=== PATIENT | female | born 1955 | race Caucasian/White ===

== ENCOUNTER 2019-02-15 17:46 | Emergency (ER) | payer OTHER, SELFPAY ==
[2019-02-15] VITALS (10 sets, daily range): BP systolic 116–163; BP diastolic 56–76; PULSE 61–77; RESP 15–21; TEMP 36.6–36.7; O2SAT 91–100; BMI 27.8
[2019-02-15] MEDS: ONDANSETRON 4 MG/2 ML INJ IV ×2 (18:08→19:54)
[2019-02-15] MEDS: SODIUM CHLORIDE 0.9% 1,000 ML 1000 ML IV ×2 (18:08→19:53)
[2019-02-15 18:12] LABS: Add Manual Diff / Slide Review NO; Basophils Absolute Auto 0 /uL (0-100); Basophils Percent Auto 0.1 % (0-2); Eosinophils Absolute Auto 0 /uL (0-450); Eosinophils Percent Auto 0.1 % (2-4); Hematocrit 41.2 % (36-46); Hemoglobin 14.5 g/dL (12.0-16.0); Lymphocytes Absolute Auto 800 /uL (1100-4500); Lymphocytes Percent Auto 5.6 % (25-40); Mean Corpuscular HGB Conc 35.1 % (30-36); Mean Corpuscular Hemoglobin 31.2 PG (26-34); Mean Corpuscular Volume 88.8 fL (80-100); Monocytes Absolute Auto 500 /uL (0-900); Monocytes Percent Auto 3.5 % (3-14); Neutrophils Absolute Auto 13100 /uL (1500-7000); Neutrophils Percent Auto 90.7 % (50-75); Platelet Count 310 X10^3/uL (150-400); Red Blood Cell Count 4.64 X10^6/uL (4.0-5.2); Red Cell Distribution Width 12.4 % (11.6-14.8); White Blood Cell Count 14.5 X10^3/uL (4.5-11.0)
[2019-02-15 18:17] LABS: Prothrombin Time 11.9 SECONDS (10.1-12.7)
[2019-02-15 18:19] LABS: PTT Partial Thromboplastin Tim 30 SECONDS (26.4-36.2)
[2019-02-15 18:21] LABS: Alanine Aminotransferase 46 IU/L (<35); Albumin 4.8 g/dL (3.5-5.0); Albumin Globulin Ratio 1.5 (1.0-2.8); Alkaline Phosphatase 103 U/L (38-126); Aspartate Aminotransferase 35 IU/L (14-36); Bilirubin Total 0.6 mg/dL (0.2-1.3); Blood Urea Nitrogen 18 mg/dL (7-17); Calcium 9.6 mg/dL (8.4-10.2); Carbon Dioxide 28 mmol/L (22-32); Chloride 99 mmol/L (98-107); Estimated Glomerular Filt Rate > 60.0 mL/min (>60); Globulin 3.2 g/dL (1.7-4.1); Glucose 142 mg/dL (80-110); HEMOLYSIS < 15 (0-50); Lipase 68 U/L (23-300); Potassium 3.7 mmol/L (3.4-5.1); Sodium 138 mmol/L (137-145)
--- NOTE | 2019-02-15 18:23 | ED.NAVMDI ---
HPI - Nausea/Vomiting/Diarrhea General Chief complaint: Nausea/Vomiting/Diarrhea Stated complaint: Food poisoning Time Seen by Provider: 02/15/19 18:09 Mode of arrival: Ambulatory History of Present Illness HPI Narrative: 63-year-old woman with history of mild thyroid dysfunction, depression and third-degree heart block status post pacemaker presents with almost 24 hours of nausea vomiting and diarrhea. At about 7:00 a.m. last night she ate a small individual pizza from [employer] and it within 4 hours of that began vomiting. Follow shortly thereafter with diarrhea. There has been no blood in either emesis or stool. The nausea has persisted and she has continued to the point where she simply having dry heaves. The diarrhea has stopped as there is nothing left to come out at this point. She complains of some mild abdominal pain from all of the vomiting and diarrhea but no other significant pain. She states that she is not dizzy when she stands up (she is in a paced rhythm in the 60s) she notes that she will get some chills just prior to vomiting however hasn't reported any fevers. No headache, chest pain, dyspnea, rashes. Related Data Allergies Allergy/AdvReac Type Severity Reaction Status Date / Time No Known Drug Allergies Allergy Verified 02/15/19 17:53 Review of Systems Review of Systems ROS Unobtainable: All systems reviewed & are unremarkable except as noted in HPI and below Patient History Social History (Updated 02/15/19 @ 18:28 by Kenya Skaggs MD) marital status: household members: spouse Smoking Status: Never smoker Smoking Status: Never smoker alcohol intake frequency: 0-2 drinks per day Substance Use Type: does not use Exam Narrative Exam Narrative: General: Healthy appearing, in no acute distress. Able to give a complete and coherent history. Well-nourished well-developed HEENT: Dry mucous membranes, normal sclera with reactive pupils, Neck: No JVD, supple Respiratory: Lungs are clear to auscultation, no wheezing no rales no rhonchi. Full and symmetrical air movement Cardiac: Regular rate and rhythm no murmurs no bruits Abdomen: Soft, abdominal wall muscular tenderness, hyperactive bowel tones, no flank pain Skin: Warm and dry, no rashes Neurologic: Grossly neurologically intact with no obvious asymmetries or abnormalities Extremities: No trauma, Psych: Cooperative, appropriate insight and affect Initial Vital Signs Initial Vital Signs: Vital Signs Temperature 98 F 02/15/19 17:53 Pulse Rate 68 02/15/19 17:53 Respiratory Rate 21 02/15/19 17:53 Blood Pressure 145/75 H 02/15/19 17:53 Pulse Oximetry 99 02/15/19 17:53 Course Course Course Narrative: Exam is most consistent with food poisoning as she suspects. Labs are pending. Suspect that she will need 2 L of fluid. Zofran has been administered. If this is ineffective will also add Phenergan. When she is able to void spontaneously and keep some liquids down suspect she will be safe for home discharge Patient is feeling better. I did review her elevated white blood cell count with her. Recommended that she return with increasing pain or recurrence vomiting or diarrhea. She is able to keep liquids down at this point. No evidence of an acute abdomen with clear improvement over the course of her ER stay. She is safe for home discharge Orders Ordered: ED Orders 02/15/19 18:00 Complete Blood Count AUTO DIFF Stat Comprehensive Metabolic Panel Stat Lipase Stat Partial Thromboplastin Time Stat Prothrombin Time INR Stat 02/15/19 19:49 Urine Culture Stat Urine Microscopic Stat Discontinued Medications Hydromorphone HCl (Dilaudid) 0.5 mg IV NOW ONE Stop: 02/15/19 20:49 Last Admin: 02/15/19 20:55 Dose: 0.5 mg Documented by: MEISENB Sodium Chloride (Normal Saline 0.9%) 1,000 mls @ 1,000 mls/hr IV BOLUS ONE Stop: 02/15/19 19:03 Last Infusion: 02/15/19 19:20 Dose: 0 mls/hr Documented by: Admin: 02/15/19 18:08 Dose: 1,000 mls/hr Documented by: MEISENB Sodium Chloride (Normal Saline 0.9%) 1,000 mls @ 1,000 mls/hr IV BOLUS ONE Stop: 02/15/19 20:47 Last Infusion: 02/15/19 21:01 Dose: 0 mls/hr Documented by: Admin: 02/15/19 19:53 Dose: 1,000 mls/hr Documented by: MEISENB Sodium Chloride (Normal Saline 0.9%) 1,000 mls @ 1,000 mls/hr IV BOLUS ONE Stop: 02/15/19 20:57 Metoclopramide HCl (Reglan) 10 mg IV NOW ONE Stop: 02/15/19 20:05 Last Admin: 02/15/19 20:08 Dose: 10 mg Documented by: EDWIN Ondansetron HCl (Zofran) 4 mg IV NOW ONE Stop: 02/15/19 18:05 Last Admin: 02/15/19 18:08 Dose: 4 mg Documented by: EDWIN Ondansetron HCl (Zofran) 4 mg IV NOW ONE Stop: 02/15/19 19:49 Last Admin: 02/15/19 19:54 Dose: 4 mg Documented by: EDWIN Pantoprazole Sodium (Protonix) 40 mg IV NOW ONE Stop: 02/15/19 20:02 Last Admin: 02/15/19 20:08 Dose: 40 mg Documented by: DEWIN Vital Signs Vital signs: Vital Signs - 8 hr 02/15/19 17:53 02/15/19 18:30 02/15/19 18:58 Temperature 98 F Pulse Rate 68 62 65 Respiratory Rate 21 20 20 Blood Pressure 145/75 H Blood Pressure [Left Arm] 163/70 H 155/64 H Pulse Oximetry 99 96 02/15/19 19:08 02/15/19 19:30 02/15/19 20:00 Temperature Pulse Rate 65 71 61 Respiratory Rate 21 21 21 Blood Pressure Blood Pressure [Left Arm] 162/67 H 156/76 H 146/65 H Pulse Oximetry 96 97 97 02/15/19 20:16 02/15/19 21:16 02/15/19 22:00 Temperature Pulse Rate 61 77 67 Respiratory Rate 20 16 15 Blood Pressure Blood Pressure [Left Arm] 163/65 H 126/57 L 116/56 L Pulse Oximetry 96 91 100 MDM - Nausea/Vomiting/Diarrhea Lab Data Result diagrams: 02/15/19 18:00 02/15/19 18:00 Labs: Lab Results 02/15/19 02/15/19 02/15/19 Range/Units 18:00 18:00 18:00 WBC 14.5 H (4.5-11.0) X10^3/uL RBC 4.64 (4.0-5.2) X10^6/uL Hgb 14.5 (12.0-16.0) g/dL Hct 41.2 (36-46) % MCV 88.8 (80-100) fL MCH 31.2 (26-34) PG MCHC 35.1 (30-36) % RDW 12.4 (11.6-14.8) % Plt Count 310 (150-400) X10^3/uL Neut % (Auto) 90.7 H (50-75) % Lymph % (Auto) 5.6 L (25-40) % [place] % (Auto) 3.5 (3-14) % Eos % (Auto) 0.1 L (2-4) % Baso % (Auto) 0.1 (0-2) % Neut # (Auto) 56544 H (7807-1061) /uL Lymph # (Auto) 800 L (4880-5599) /uL [place] # (Auto) 500 (0-900) /uL Eos # (Auto) 0 (0-450) /uL Baso # (Auto) 0 (0-100) /uL PT 11.9 (10.1-12.7) SECONDS INR 1.0 (0.9-1.3) APTT 30 (26.4-36.2) SECONDS Sodium 138 (137-145) mmol/L Potassium 3.7 (3.4-5.1) mmol/L Chloride 99 (98-107) mmol/L Carbon Dioxide 28 (22-32) mmol/L BUN 18 H (7-17) mg/dL Creatinine 0.60 (0.52-1.04) mg/dL Estimated GFR > 60.0 (>60) mL/min BUN/Creatinine Ratio 30.0 H (6-22) Glucose 142 H (80-110) mg/dL Calcium 9.6 (8.4-10.2) mg/dL Total Bilirubin 0.6 (0.2-1.3) mg/dL AST 35 (14-36) IU/L ALT 46 H (<35) IU/L Alkaline Phosphatase 103 (38-126) U/L Total Protein 8.0 (6.3-8.2) g/dL Albumin 4.8 (3.5-5.0) g/dL Globulin 3.2 (1.7-4.1) g/dL Albumin/Globulin Ratio 1.5 (1.0-2.8) Lipase 68 (23-300) U/L Urine RBC (0-5/HPF) Urine WBC (0-5/HPF) Amorphous Sediment Urine Bacteria (None) Urine Mucus (Negative) Ur Culture Indicated? 02/15/19 Range/Units 19:49 WBC (4.5-11.0) X10^3/uL RBC (4.0-5.2) X10^6/uL Hgb (12.0-16.0) g/dL Hct (36-46) % MCV (80-100) fL MCH (26-34) PG MCHC (30-36) % RDW (11.6-14.8) % Plt Count (150-400) X10^3/uL Neut % (Auto) (50-75) % Lymph % (Auto) (25-40) % [place] % (Auto) (3-14) % Eos % (Auto) (2-4) % Baso % (Auto) (0-2) % Neut # (Auto) (7107-7558) /uL Lymph # (Auto) (4934-8392) /uL [place] # (Auto) (0-900) /uL Eos # (Auto) (0-450) /uL Baso # (Auto) (0-100) /uL PT (10.1-12.7) SECONDS INR (0.9-1.3) APTT (26.4-36.2) SECONDS Sodium (137-145) mmol/L Potassium (3.4-5.1) mmol/L Chloride (98-107) mmol/L Carbon Dioxide (22-32) mmol/L BUN (7-17) mg/dL Creatinine (0.52-1.04) mg/dL Estimated GFR (>60) mL/min BUN/Creatinine Ratio (6-22) Glucose (80-110) mg/dL Calcium (8.4-10.2) mg/dL Total Bilirubin (0.2-1.3) mg/dL AST (14-36) IU/L ALT (<35) IU/L Alkaline Phosphatase (38-126) U/L Total Protein (6.3-8.2) g/dL Albumin (3.5-5.0) g/dL Globulin (1.7-4.1) g/dL Albumin/Globulin Ratio (1.0-2.8) Lipase (23-300) U/L Urine RBC 1-5/hpf (0-5/HPF) Urine WBC 10-30/hpf H (0-5/HPF) Amorphous Sediment 1+ Urine Bacteria Moderate (10-30) H (None) Urine Mucus 2+ H (Negative) Ur Culture Indicated? Specimen cultured Urine Dip Bedside Urine Glucose Negative Bedside Urine Bilirubin - Negative Bedside Urine Ketone +++ 80 Urine Specific [place] 1.015 Bedside Urine Occult Blood +/- Bedside Urine pH 6.5 Bedside Urine Protein + 30 Bedside Urine Urobilinogen +/- 1mg Bedside Urine Nitrite - Negative Bedside Urine Leukocytes +/- 15 Esterase MDM Narrative Medical decision making narrative: Still nauseated after initial Phenergan in L of fluid. White blood cell count is slightly elevated with a slight left shift. Her abdomen is reexamined slightly diffusely tender but no rebound or guarding. Will try Phenergan and a 2nd L of fluid and re-evaluate Discharge Plan Departure Patient Disposition: Home Clinical Impression: Food poisoning, Gastroenteritis Instructions: DI for Viral Gastroenteritis -- Adult Activity Restrictions/Additional Instructions: Thank you for coming in today. I'm glad we were able to get you rehydrated and feeling a bit better. With your elevated white blood cell count it may be that this is a viral gastroenteritis rather than food poisoning. Both should heal nicely and you for should feel better tomorrow. If you're having fevers, recurrence vomiting or diarrhea or increasing abdominal pain he deemed to return to the emergency department for additional evaluation. I do hope that you feel better
[2019-02-15] MEDS: METOCLOPRAMIDE 10 MG/2 ML INJ IV (20:08)
[2019-02-15] MEDS: PANTOPRAZOLE 40 MG VIAL IV (20:08)
[2019-02-15 20:13] LABS: Amorphous Sediment Urine 1+; Bacteria Urine Moderate (10-30); Culture Indicated Urine Specimen Cultured; Mucus Urine 2+ (Negative); RBC Urine 1-5/HPF (0-5/HPF); WBC Urine 10-30/HPF (0-5/HPF)
[2019-02-15] MEDS: HYDROMORPHONE 0.5 MG INJ IV (20:55)
== END 2019-02-15 22:26 | disposition home or self-care (01) ==
PROVIDERS: Emergency Provider Emergency Medicine
DX: A08.4 Viral intestinal infection, unspecified (principal); A05.9 Bacterial foodborne intoxication, unspecified
CPT/HCPCS: 36415; 80053; 81003; 81015; 83690; 85025; 85610; 85730; 87086; 96361; 96374; 96375; 96376; 99284; C9113; J1170; J2405; J2765

== ENCOUNTER 2019-04-07 20:23 | Emergency (ER) | payer OTHER, SELFPAY ==
[2019-04-07 20:30] VITALS: BP 130/58; PULSE 65; RESP 14; TEMP 37; O2SAT 98
--- NOTE | 2019-04-07 22:18 | ED_ITS ---
HPI - Extremity Injury (Lower) General Chief Complaint: Extremity Injury, Lower Stated Complaint: back or right leg pain Time Seen by Provider: 04/07/19 21:41 Source: patient Mode of arrival: Wheelchair Limitations: no limitations History of Present Illness HPI Narrative: This is a 64-year-old female comes emergency department with right lower extremity pain. Patient states symptoms started after she had gone up a ladder into her attic. She does remember tweaking it but symptoms started very shortly after that. Patient states she has had some pain sort of spotty discomfort with some radiating down sort of from the hip area down her lower extremity. She has also had some numbness and tingling sensation. She has found that weight-bearing makes it more uncomfortable. She denies any back pain. She states it does not feel like it is in the bone. She states she is not sure if she strained a muscle but that does not seem to be localized in that aspect. She has not had any swelling, no redness, no skin changes. She has not had similar symptoms in the past. She has not had any chest pain or shortness of breath, no lightheadedness or passing-out, no nausea, no vomiting, no issues with bowel movements or urination. No bladder or stool incontinence. She has tried ibuprofen with moderate improvement. This evening she twisted while she was going up some stairs to the local restaurant and this exacerbated her symptoms. She has a history of pacemaker secondary to heart block. She is not on any other medications regularly. No tobacco, occasional alcohol, no illicit. Patient does not have any history of DVTs, no long distance recent travel. No family history of DVTs or vascular issues Related Data Previous Rx's Medication Instructions Recorded prednisone 40 mg PO DAILY #5 tab 04/07/19 Allergies Allergy/AdvReac Type Severity Reaction Status Date / Time No Known Drug Allergies Allergy Verified 02/15/19 17:53 Patient History Social History marital status: household members: spouse Smoking Status: Never smoker Smoking Status: Never smoker alcohol intake frequency: 0-2 drinks per day Substance Use Type: does not use Exam Narrative Exam Narrative: GENERAL: Alert and oriented x three, well-nourished female in mild distress. HEENT: Head normocephalic, atraumatic, EOMI, pupils reactive, face symmetric, moist mucous membranes NECK: Supple, full range of motion CARDIOVASCULAR: Regular rate and rhythm without murmurs, rubs or gallops. RESPIRATORY: Breath sounds equal bilaterally, no wheezes rales or rhonchi. ABDOMEN: Soft, nontender. Normoactive bowel sounds all 4 quadrants. No guarding or rebound, rigidity, no mass : No CVA tenderness BACK: No cervical, thoracic or lumbar vertebral point tenderness. Patient has normal range of motion. Patient's gait is deferred. Rectal exam is deferred. Muscle strength is 5/5 in lower extremities, DTRs are 2/4 and lower extremities. Dorsalis pedis and tibialis pulses are 2+ and lower extremities. Sensation is intact in the lower extremities. EXTREMITIES: Normal range of motion, no clubbing or edema. No erythema. No cyanosis. Patient has full range of motion. She does have discomfort with straight leg raise. No pain with passive movement of the knee. No bony tenderness throughout the lower extremity. Patient does have tenderness recreating symptoms of the left piriformis/sciatic region on the buttock. Neurovascularly intact NEUROLOGICAL: Cranial nerves II through XII grossly intact. Moving all extremities SKIN: Warm, dry, no petechiae, no rashes or lesions. Initial Vital Signs Initial Vital Signs: Vital Signs Temperature 98.6 F 04/07/19 20:30 Pulse Rate 65 04/07/19 20:30 Respiratory Rate 14 04/07/19 20:30 Blood Pressure 130/58 L 04/07/19 20:30 Pulse Oximetry 98 04/07/19 20:30 Scores Wells' Criteria for DVT Active Cancer (Treatment within 6 months): No Bedridden recently >3 days or major surgery within 4 weeks: No Calf Swelling >3cm compared to other leg: No Collateral (nonvericose) superficial veins present: No Entire leg swollen: No Localized tenderness along the deep vein system: No Pitting edema, confined to symtomatic leg: No Paralysis, paresis, or recent plaster immobilization of ext: No Previously documented DVT: No Alternative dx to DVT as likely or more likely: No Wells' criteria for DVT: 0 Course Orders Ordered: Discontinued Medications Ketorolac Tromethamine (Toradol) 30 mg IM NOW ONE Stop: 04/07/19 22:30 Last Admin: 04/07/19 22:33 Dose: 30 mg [facility] Vital Signs Vital signs: Vital Signs - 8 hr 04/07/19 20:30 04/07/19 22:40 Temperature 98.6 F Pulse Rate 62 Pulse Rate [Left] 65 Respiratory Rate 14 14 Blood Pressure [Left Arm] 130/58 L 128/69 Pulse Oximetry 98 97 MDM - Extremity Injury (Lower) MDM Narrative Medical decision making narrative: Patient comes in with complaint of right leg pain. Patient states seems to have started after she had gone up a ladder into her attic but patient has had some worsening symptoms today. She describes some numbness and tingling. Pain is mostly in the leg she does not appreciate any back pain. On physical exam suspicion is higher for sciatica. No red flag symptoms for back pain. Patient's symptoms did not seem consistent with DVT or infection in the lower extremity and Wells score is 0. Patient plan for course of steroids, NSAIDs and follow-up with primary care discussed return precautions and patient feels comfortable with the plan. Discharge Plan Departure Patient Disposition: Home Clinical Impression: Sciatica Qualifiers: Laterality: right Qualified Code(s): M54.31 - Sciatica, right side Discharge Date/Time: 04/07/19 22:42 Instructions: DI for Sciatica Activity Restrictions/Additional Instructions: Follow up with your primary care physician in the next week for recheck. Start prednisone in the morning take once daily until gone. I would recommend taking this medication with food. May take ibuprofen up to 800 mg every 8 hours and/or Tylenol up to a 1000 mg every 8 hours as needed for pain. Return to the ER for fevers greater 100.4 F new weakness in your lower extremity loss of sensation, inability to move your foot or leg, loss of bowel or bladder control, new back pain, passing out, new chest pain or shortness of breath, redness, color changes to your lower extremity or swelling of your lower extremity or other new or concerning symptoms.. Prescriptions: New prednisone 20 mg tablet 40 mg PO DAILY Qty: 5 RF: 0 Referrals: Cecelia Dawson PA-C [Non-Staff] - Stand Alone Forms: Work Release Note
[2019-04-07] MEDS: KETOROLAC 60 MG/2 ML VIAL 30 MG IM (22:33)
[2019-04-07 22:40] VITALS: BP 128/69; PULSE 62; RESP 14; O2SAT 97
--- NOTE | 2019-04-08 10:29 | PC.NURSE ---
Call from [facility] pharmacy: Prescribed prednisone is only for #5 (order is for 20 mg tabs, 40 mg po qd) discussed w/ Dr. Alvarez. Order amended to dispense quantity 10 to = 5 days.
== END 2019-04-07 22:42 | disposition home or self-care (01) ==
PROVIDERS: Emergency Provider Emergency Medicine
DX: M54.31 Sciatica, right side (principal)
CPT/HCPCS: 96372; 99283; J1885

== ENCOUNTER → 2019-06-25 07:15 | Outpatient (CLI) | payer OTHER, SELFPAY ==
[2019-06-25 09:52] LABS: Add Manual Diff / Slide Review NO; Basophils Absolute Auto 0 /uL (0-100); Basophils Percent Auto 0.6 % (0-2); Eosinophils Absolute Auto 200 /uL (0-450); Hematocrit 40.7 % (36-46); Hemoglobin 14.1 g/dL (12.0-16.0); Lymphocytes Absolute Auto 1500 /uL (1100-4500); Lymphocytes Percent Auto 33.9 % (25-40); Mean Corpuscular HGB Conc 34.6 % (30-36); Mean Corpuscular Volume 89.5 fL (80-100); Monocytes Absolute Auto 400 /uL (0-900); Monocytes Percent Auto 8.7 % (3-14); Neutrophils Absolute Auto 2300 /uL (1500-7000); Neutrophils Percent Auto 51.8 % (50-75); Platelet Count 311 X10^3/uL (150-400); Red Blood Cell Count 4.54 X10^6/uL (4.0-5.2); Red Cell Distribution Width 12.6 % (11.6-14.8); White Blood Cell Count 4.5 X10^3/uL (4.5-11.0)
[2019-06-25 10:20] LABS: BUN Creatinine Ratio 26.8 (6-22); Blood Urea Nitrogen 22 mg/dL (7-17); Calcium 9.6 mg/dL (8.4-10.2); Carbon Dioxide 27 mmol/L (22-32); Chloride 105 mmol/L (98-107); Cholesterol 226 mg/dL (140-199); Estimated Glomerular Filt Rate > 60.0 mL/min (>60); Glucose 89 mg/dL (80-110); HDL Cholesterol 56 mg/dL (40-60); HEMOLYSIS < 15 (0-50); LDL Cholesterol Calculated 149 mg/dL (<100); Potassium 4.3 mmol/L (3.4-5.1); Sodium 139 mmol/L (137-145); Triglycerides 105 mg/dL (35-150)
== END ==
PROVIDERS: Referring Provider Internal Medicine Cardiovascular Disease; Visit Provider Internal Medicine Cardiovascular Disease
DX: I48.0 Paroxysmal atrial fibrillation (principal); E78.5 Hyperlipidemia, unspecified
CPT/HCPCS: 36415; 80048; 80061; 83735; 85025

== ENCOUNTER → 2019-06-25 14:52 | Outpatient (CLI) | payer OTHER, SELFPAY ==
--- NOTE | 2019-06-25 | DI.ECHO.S_ITS ---
[facility]---------+ [facility] +---------+ : : [address] : : : : [id number] : : : : Phone: [phone] Echocardiogram Report + + :Name: ELIZABETH MENDOZA Study Date: 06/25/2019 Height: 64 in : :[facility] Weight: 164 lb : : Gender: Female BSA: 1.8 m2 : :: 1955 Age: 64 yrs BP: 110/78 mmHg: :Reason For Study: Atrial Fibrillation : :Ordering Physician: Thu Hendrickson : :Brianna Performed By: Corine Herrera : :Referring: THU REED : + + Interpretation Summary 1) Normal left ventricular size, thickness, wall motion, and systolic function (EF 65-70%). 2) Upper normal right ventricular size with normal function. Pacemaker lead in the right ventricle. 3) No significant valvular abnormalities. 4) No prior Echo available for comparison. Procedure: A two-dimensional transthoracic echocardiogram with color flow and Doppler was performed. The study quality was technically adequate. There is no prior echocardiogram noted for this patient. The patient was in normal sinus rhythm during the exam. Left Ventricle: The left ventricle is normal in size and wall thickness. The ejection fraction is estimated to be 65-70%. Left ventricular systolic function is normal without focal wall motion abnormalities. Right Ventricle: There is a pacemaker lead in the right ventricle. The right ventricle is at the upper limits of normal in size. The right ventricular systolic function is normal. Atria: Both atria are normal in size. The interatrial septum is intact with no evidence for an atrial septal defect. Mitral Valve: The mitral valve is normal in structure and function. There is trace mitral regurgitation. Aortic Valve: The aortic valve is trileaflet. The aortic valve opens well. There is no aortic valve stenosis. No aortic regurgitation is present. Tricuspid Valve: The tricuspid valve is normal in structure and function. There is trace tricuspid regurgitation. The right ventricular systolic pressure is estimated to be at least 21 mmHg based on an estimated right atrial pressure of 3 mm Hg. Pulmonic Valve: The pulmonic valve is not well seen, but is grossly normal. There is no pulmonic valvular regurgitation. Great Vessels: The aortic root is normal size. The ascending aorta could not be visualized. The IVC is of normal diameter and collapses greater than 50% with a sniff. This suggests a low right atrial pressure of 3 mm Hg. Pericardium/ Pleura There is no pericardial effusion. There is no pleural effusion. MMode/2D Measurements & Calculations LVIDd: 4.1 cm LVOT diam: 2.0 cm LVIDs: 2.7 cm Ao root diam: 2.7 cm FS: 35.0 % Ao Arch Diam (Prox Trans): 2.6 cm EPSS: 0.75 cm IVSd: 0.94 cm LVPWd: 0.89 cm LV bryan. diameter/BSA (cm/m^2): 2.3 LV sys. diameter/BSA (cm/m^2): 1.5 LA A2 area: 14.9 cm2 RA long axis: 4.5 cm LA A4 area: 13.3 cm2 RA area: 13.7 cm2 LA length (vol): 4.7 cm RA vol: 35.2 ml LA vol: 35.6 ml RA : 19.6 ml/m2 LA vol index: 19.8 ml/m2 IVC diam: 1.4 cm RVD1 (basal): 4.0 cm TAPSE: 2.1 cm Doppler Measurements & Calculations Ao V2 max: 181.9 cm/sec LVOT Max Abdirashid: 98.0 cm/sec Ao V2 mean: 115.7 cm/sec LV V1 max P.8 mmHg Ao max P.2 mmHg LV V1 VTI: 20.0 cm Ao mean P.3 mmHg RC(I,D): 1.7 cm2 Ao V2 VTI: 39.2 cm RC(V,D): 1.8 cm2 sev ratio: 0.51 RC indexed to BSA (cm^2/m^2): 0.92 MV E max abdirashid: 89.6 cm/sec TR max abdirashid: 213.9 cm/sec MV A max abdirashid: 95.4 cm/sec TR max P.3 mmHg MV E/A: 0.94 PA V2 max: 89.8 cm/sec Med Peak E' Abdirashid: 6.2 cm/sec PA V2 mean: 59.4 cm/sec E/E' med: 14.5 PA mean P.6 mmHg Lat Peak E' Abdirashid: 10.2 cm/sec E/E' lat: 8.8 E/e' average: 11.6 MV dec time: 0.22 sec SV(LVOT): 65.1 ml Reading Physician:02:19 PM
== END ==
PROVIDERS: PCP Physician Assistant; Referring Provider Internal Medicine Cardiovascular Disease; Visit Provider Internal Medicine Cardiovascular Disease
DX: I48.0 Paroxysmal atrial fibrillation (principal); E78.5 Hyperlipidemia, unspecified
CPT/HCPCS: 36415; 80048; 80061; 83735; 85025; 93306

== ENCOUNTER → 2019-10-27 11:06 | Outpatient (CLI) | payer OTHER, SELFPAY ==
[2019-10-27 12:14] LABS: Add Manual Diff / Slide Review NO; Basophils Absolute Auto 0 /uL (0-100); Basophils Percent Auto 0.6 % (0-2); Eosinophils Absolute Auto 300 /uL (0-450); Eosinophils Percent Auto 4.1 % (2-4); Hematocrit 39.7 % (36-46); Hemoglobin 13.5 g/dL (12.0-16.0); Lymphocytes Absolute Auto 2100 /uL (1100-4500); Mean Corpuscular Hemoglobin 30.4 PG (26-34); Mean Corpuscular Volume 89.4 fL (80-100); Monocytes Absolute Auto 500 /uL (0-900); Monocytes Percent Auto 7.5 % (3-14); Neutrophils Absolute Auto 4000 /uL (1500-7000); Neutrophils Percent Auto 57.8 % (50-75); Platelet Count 321 X10^3/uL (150-400); Red Blood Cell Count 4.44 X10^6/uL (4.0-5.2); Red Cell Distribution Width 12.7 % (11.6-14.8)
[2019-10-27 12:47] LABS: BUN Creatinine Ratio 16.7 (6-22); Blood Urea Nitrogen 13 mg/dL (7-17); Calcium 9.5 mg/dL (8.4-10.2); Carbon Dioxide 29 mmol/L (22-32); Chloride 103 mmol/L (98-107); Cholesterol 163 mg/dL (140-199); Estimated Glomerular Filt Rate > 60.0 mL/min (>60); Glucose 87 mg/dL (80-110); HDL Cholesterol 66 mg/dL (40-60); HEMOLYSIS < 15 (0-50); LDL Cholesterol Calculated 65 mg/dL (<100); Potassium 4.2 mmol/L (3.4-5.1); Sodium 138 mmol/L (137-145); Triglycerides 158 mg/dL (35-150)
== END ==
PROVIDERS: PCP Physician Assistant; Referring Provider Internal Medicine Cardiovascular Disease; Visit Provider Internal Medicine Cardiovascular Disease
DX: I48.0 Paroxysmal atrial fibrillation (principal); E78.5 Hyperlipidemia, unspecified
CPT/HCPCS: 36415; 80048; 80061; 85025

== ENCOUNTER → 2019-11-05 16:58 | Outpatient (CLI) | payer OTHER, SELFPAY ==
--- NOTE | 2019-11-05 17:00 | DI.MG.S_ITS ---
BILATERAL DIGITAL SCREENING MAMMOGRAM 3D/2D WITH CAD: 11/05/2019 CLINICAL: Routine screening. Family history of breast cancer. Comparison is made to exams dated: 06/12/2018 mammogram, 05/15/2017 mammogram, and 10/10/2015 mammogram - [facility]. There are scattered fibroglandular elements in both breasts. Current study was also evaluated with a Computer Aided Detection (CAD) system. No significant masses, calcifications, or other findings are seen in either breast. There has been no significant interval change. IMPRESSION: NEGATIVE There is no mammographic evidence of malignancy. A 1 year screening mammogram is recommended. This exam was interpreted at Station ID: [id number]. NOTE: For mammograms, a report in lay terms will be sent to the patient. Approximately 15% of breast malignancies will not be visualized mammographically. In the management of a palpable breast mass, a negative mammogram must not discourage biopsy of a clinically suspicious lesion. Electronically Signed By: Tony lee/teofilo:11/05/2019 17:39:04 letter sent: Normal Exam ACR BI-RADS Category 1: Negative [id number]
== END ==
PROVIDERS: PCP Physician Assistant; Referring Provider Physician Assistant; Visit Provider Physician Assistant
DX: Z12.31 Encounter for screening mammogram for malignant neoplasm of breast (principal); Z80.3 Family history of malignant neoplasm of breast
CPT/HCPCS: 77063; 77067

== ENCOUNTER → 2021-01-23 17:45 | Outpatient (CLI) | payer OTHER, SELFPAY ==
--- NOTE | 2021-01-23 | DI.MG.S_ITS ---
BILATERAL DIGITAL SCREENING MAMMOGRAM 3D/2D WITH CAD: 01/23/2021 CLINICAL: Routine screening. Family history of breast cancer. Comparison is made to exams dated: 11/05/2019 mammogram - [facility], 06/12/2018 mammogram, and 05/15/2017 mammogram - [facility]. There are scattered fibroglandular elements in both breasts. Current study was also evaluated with a Computer Aided Detection (CAD) system. No significant masses, calcifications, or other findings are seen in either breast. There has been no significant interval change. IMPRESSION: NEGATIVE There is no mammographic evidence of malignancy. A 1 year screening mammogram is recommended. This exam was interpreted at Station ID: [id number]. NOTE: For mammograms, a report in lay terms will be sent to the patient. Approximately 15% of breast malignancies will not be visualized mammographically. In the management of a palpable breast mass, a negative mammogram must not discourage biopsy of a clinically suspicious lesion. Electronically Signed By: Easton hatfield/teofilo:01/24/2021 07:06:48 letter sent: Normal Exam ACR BI-RADS Category 1: Negative [id number]
== END ==
PROVIDERS: PCP Physician Assistant; Referring Provider Physician Assistant; Visit Provider Physician Assistant
DX: Z12.31 Encounter for screening mammogram for malignant neoplasm of breast (principal); Z80.3 Family history of malignant neoplasm of breast
CPT/HCPCS: 77063; 77067

== ENCOUNTER → 2021-06-26 13:35 | Outpatient (CLI) | payer OTHER, SELFPAY ==
--- NOTE | 2021-06-26 | DI.CT.S_ITS ---
PROCEDURE: CT CERVICAL SPINE WO CON INDICATIONS: Spinal stenosis, cervical region TECHNIQUE: Noncontrast 3 mm thick sections acquired from the skull base to the T4 level. Sagittal and coronal reformats were then constructed. For radiation dose reduction, the following was used: automated exposure control, adjustment of mA and/or kV according to patient size. COMPARISON: Outside Film, CR, XR CERVICAL SPINE 2 OR 3 VIEWS, 04/18/2021, 11:04. FINDINGS: Image quality: This examination is somewhat limited by quantum mottle artifact. Bones: No fractures or dislocations. Visualized superior ribs are intact. There is straightening of the normal cervical lordosis. Moderate to severe disc space narrowing is seen at C5-C6 and there is at least moderate disc space narrowing at C6-C7. Mild posteriorly directed endplate osteophytes can be seen at C5-C6 and C6-C7. At C5-C6 and C6-C7, there is moderate to severe bilateral neural foraminal narrowing seen and moderate central canal narrowing. Focal degenerative change is seen involving the C1-C2 interface anteriorly. Milder degenerative changes are seen elsewhere. Soft tissues: Prevertebral soft tissues are normal in thickness. No paravertebral hematomas. No apical pneumothoraces. A right-sided pacer device is seen. IMPRESSION: Cervical spine degenerative changes are seen, which are worst inferiorly. Right-sided pacer device partially seen. Dictated by: Yonathan Jurado M.D. on 06/26/2021 at 13:43 Approved by: Yonathan Jurado M.D. on 06/26/2021 at 13:45
== END ==
PROVIDERS: PCP Physician Assistant; Referring Provider Orthopaedic Surgery Orthopaedic Surgery of the Spine; Visit Provider Orthopaedic Surgery Orthopaedic Surgery of the Spine
DX: M48.02 Spinal stenosis, cervical region (principal); M47.812 Spondylosis without myelopathy or radiculopathy, cervical region; Z95.0 Presence of cardiac pacemaker
CPT/HCPCS: 72125

== ENCOUNTER → 2022-02-16 15:37 | Outpatient (CLI) | payer OTHER, SELFPAY ==
--- NOTE | 2022-02-16 15:39 | DI.MG.S_ITS ---
BILATERAL DIGITAL SCREENING MAMMOGRAM 3D/2D WITH CAD: 02/16/2022 CLINICAL: Routine screening. Family history of breast cancer. Comparison is made to exams dated: 01/23/2021 mammogram, 11/05/2019 mammogram - [facility], and 06/12/2018 mammogram - [facility]. There are scattered areas of fibroglandular density in both breasts (category b / 25%-50% glandular tissue). Current study was also evaluated with a Computer Aided Detection (CAD) system. There is a new 0.9 cm oval equal density focal asymmetry in the left breast central to the nipple middle depth. No other significant masses, calcifications, or other findings are seen in either breast. IMPRESSION: INCOMPLETE: NEEDS ADDITIONAL IMAGING EVALUATION The new 0.9 cm oval equal density focal asymmetry in the left breast resembles a cyst and is indeterminate. Additional views with possible ultrasound are recommended. Based on the Tyrer Cuzick model (a risk assessment model) the patient's lifetime risk is 14.1% and her 10 year risk is 8.0%. According to the ACR, ACS, and NCCN guidelines, an annual breast MRI exam along with mammogram is recommended if the patient's lifetime risk is 20% or greater. This exam was interpreted at Station ID: [id number]. NOTE: For mammograms, a report in lay terms will be sent to the patient. Approximately 15% of breast malignancies will not be visualized mammographically. In the management of a palpable breast mass, a negative mammogram must not discourage biopsy of a clinically suspicious lesion. Electronically Signed By: Easton Jeong M.D. aty/:02/16/2022 17:14:14 letter sent: Additional Imaging Needed ACR BI-RADS Category 0: Incomplete 3340F
== END ==
PROVIDERS: PCP Physician Assistant; Referring Provider Physician Assistant; Visit Provider Physician Assistant
DX: Z12.31 Encounter for screening mammogram for malignant neoplasm of breast (principal); Z80.3 Family history of malignant neoplasm of breast
CPT/HCPCS: 77063; 77067

== ENCOUNTER → 2022-04-04 14:11 | Outpatient (CLI) | payer OTHER, SELFPAY ==
--- NOTE | 2022-04-04 | DI.US.S_ITS ---
PROCEDURE: US BREAST LT LIMITED COMPARISON: [facility], MG, MM SPECIAL VIEW LT, 04/04/2022, 14:32. INDICATIONS: ADD VIEWS LEFT BREAST FINDINGS: IMPRESSION: Dictated by: Le Wang M.D. on 04/04/2022 at 14:59 Approved by: Le Wang M.D. on 04/04/2022 at 15:01
--- NOTE | 2022-04-04 | DI.MG.S_ITS ---
UNILATERAL LEFT DIGITAL DIAGNOSTIC MAMMOGRAM 3D/2D WITH ADDITIONAL VIEWS: 04/04/2022 CLINICAL: Additional evaluation requested from prior study. Comparison is made to exams dated: 02/16/2022 mammogram, 01/23/2021 mammogram, and 11/05/2019 mammogram - [facility]. There are scattered areas of fibroglandular density in the left breast (category b / 25%-50% glandular tissue). There is a 0.9 cm oval equal density focal asymmetry in the left breast central to the nipple middle depth. This is seen in additional views. No other significant masses or calcifications are seen in the breast. IMPRESSION: INCOMPLETE: NEEDS ADDITIONAL IMAGING EVALUATION The 0.9 cm oval equal density focal asymmetry in the left breast is indeterminate. A targeted ultrasound of the left breast is recommended and will be performed immediately following this exam. Based on the Tyrer Cuzick model (a risk assessment model) the patient's lifetime risk is 13.4% and her 10 year risk is 8.0%. According to the ACR, ACS, and NCCN guidelines, an annual breast MRI exam along with mammogram is recommended if the patient's lifetime risk is 20% or greater. This exam was interpreted at Station ID: [id number]. NOTE: For mammograms, a report in lay terms will be sent to the patient. Approximately 15% of breast malignancies will not be visualized mammographically. In the management of a palpable breast mass, a negative mammogram must not discourage biopsy of a clinically suspicious lesion. Electronically Signed By: Le Wang M.D. lk/:04/04/2022 14:36:22 ACR BI-RADS Category 0: Incomplete [id number]
== END ==
PROVIDERS: PCP Physician Assistant; Referring Provider Physician Assistant; Visit Provider Physician Assistant
DX: R92.8 Other abnormal and inconclusive findings on diagnostic imaging of breast (principal); N60.02 Solitary cyst of left breast
CPT/HCPCS: 76642; 77065; G0279